=== PATIENT | female | born 1955 | race Caucasian/White ===

== ENCOUNTER 2025-05-14 08:54 | Outpatient (AMB) | payer MEDICARE, OTHER, SELFPAY ==
--- NOTE | 2025-05-14 08:55 | A.OFFPC_ITS ---
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 Is last menstrual period known: No Post menopausal: Yes Patient : No Allergies diphenhydramine (From Benadryl) Allergy (Mild, Verified 05/14/25 09:01) Hives acetaminophen Allergy (Verified 05/14/25 16:17) Rash acetazolamide Allergy (Verified 05/14/25 16:17) Unknown phenytoin Allergy (Verified 05/14/25 16:17) Rash Medication List - Last Reconciled 05/14/25 by Minnie Partida CNP anastrozole 1 mg PO DAILY ascorbate calcium (vitamin C) 500 mg PO DAILY calcium amino acid chelate mg PO DAILY cholecalciferol (vitamin D3) 25 mcg PO DAILY Tobacco use date assessed: 05/14/25 Dental Screening Dental Screen Date: 05/14/25 Did you have a dental visit in the last 12 months?: Yes Did you have a dental problem in the last 6 months where you did not have access to dental care?: No Was dental information given to patient?: Patient has dentist HPI HPI Comments History of Present Illness Details 69-year-old female presents to establish care. Prior PCP? - Dr. Mcclelland, [facility] Last office visit/CPE/labs - About 3 years Acute issue(s) - None Past Medical History - HLD, Osteopenia, left breast cancer, m yopia (wears glasses) Surgical History - Removal of malignant tumor of left tarsha ast, multiple surgeries of left ear, right rotator cuff surgery, carpal tunnel release of right hand, cholecystectomy Family History - Mom: Diabetes Social History - Nonsmoker. Does not vape. Does not dri nk alcohol. Denies recreational drug use - Has been making healthy dietary choice s. Exercises routinely. Generally sleep well Health maintenance - Last eye exam was 3 months ago with Tamiko Alfaro for [place]. Encouraged to signed a release for her PCP to obtain ophthalmology record - Last dental visit was 2 weeks ago - Last tetanus vaccine within the past 1 0 years at [facility]. Record not available on [facility] EHR for review - She notes that she is up-to-date on th e flu vaccine - She notes that she is up-to-date on sh ingles and pneumonia vaccines - Last pap smear test 3-4 years years ag o. Referred to [facility] senior project manager for a Pap smear test - Last mammogram was in 12/05/2024 with [facility] (requested and reviewed by this provider): No mammographic evidence of malignancy and no significant interval change. - Last colonoscopy was in 2022 at [facility]: Internal hemorrhoids. Record not available on [facility] EHR for review; fax sent to request colonoscopy record - Last dexa scan was in 03/14/2024 at [facility] (requests and reviewed by this provider): [facility] On[facility]ologist at the [facility] Medical History (Updated 05/14/25 @ 16:12 by Noreen Birch MA) Hyperlipemia Anal pruritus H/O mammogram Carpal tunnel syndrome Diverticulitis Breast cancer Surgical History (Updated 05/14/25 @ 16:11 by Noreen Birch MA) History of cholecystectomy H/O colonoscopy History of lumpectomy of left breast Family History (Updated 05/14/25 @ 09:13 by Noreen Birch MA) Mother Diabetes Social History (Updated 05/14/25 @ 09:11 by Noreen Birch MA) Housing: Apartment Alcohol intake: never Patient Tobacco Use Status: Never used Tobacco e-Cigarette/Vaping Use: Never Used Second Hand Smoke Exposure: No service: No Current occupational status: retired Current occupational exposures/hazards: No Cognitive needs: No Hearing needs: No Vision needs: No Questionnaire PHQ-9 Over the last 2 weeks, how often have you been bothered by any of the following problems? 1. Little interest or pleasure in doing things: not at all 2. Feeling down, depressed, or hopeless: not at all 3. Trouble falling or staying asleep, or sleeping too much: not at all 4. Feeling tired or having little energy: not at all 5. Poor appetite or overeating: not at all 6. Feeling bad about yourself - or that you are a failure or have let yourself or your family down: not at all 7. Trouble concentrating on things, such as reading the newspaper or watching television: not at all 8. Moving or speaking so slowly that other people could have noticed. Or the opposite - being so fidgety or restless that you have been moving around a lot more than usual: not at all 9. Thoughts that you would be better off or of hurting yourself in some way: not at all Total score: 0 Depression Screening Interpretation: Negative Depression Screening Done: Yes 48765 - PHQ-9 Billing: Yes Source: Developed by Drs. Donn Koenig, Shana Brunner, Rosas Pompa and colleagues, with an educational rajeev from [employer]. Thrive Questionnaire Date Thrive assessed: 05/14/25 I am a: Patient What is your living situation today?: I have a steady place to live Within the past 12 months, did the food you bought not last and you didn't have the money to get more?: I choose not to answer this question Within the past 12 months, did you worry whether your food would run out before you got money to buy more?: Often true Do you have trouble paying for medicines?: No Do you have trouble getting transportation to medical appointments?: No Do you have trouble paying your heating and electricity bill?: No Do you have trouble taking care of your child, family member or friend?: No Do you have trouble with day-to-day activities such as bathing, preparing meals, shopping, managing finances, etc.?: No Are you currently unemployed and looking for a job?: No Are you interested in more education?: No Please select the resources that you would like help with: None Currently or been in a relationship where the following occur: No concerns reported THRIVE Score: 1 AUDIT C Alcohol Use Questionnaire (AUDIT-C) 1. How often do you have a drink containing alcohol?: Never 3. How often do you have six or more drinks on one occasion?: Never Total Score: 0 Score Reviewed/Action Taken: Yes ETHAN-7 AMB Questionnaire ETHAN-7 Date ETHAN - 7 assessed: 05/14/25 Feeling nervous, anxious, or on edge: 0 = Not at all Not being able to stop or control worryin = Not at all Worrying too much about different things: 1 = Several days Trouble relaxin = Several days Being so restless that it is hard to sit still: 0 = Not at all Becoming easily annoyed or irritable: 1 = Several days Feeling afraid as if something awful might happen: 0 = Not at all Total ETHAN-7 score (0-4 normal; 5-9 mild; 10-14 moderate; 15-21 severe): 3 Source: Developed by Drs. Donn Koenig, Shana Brunner, Rosas Pompa and colleagues, with an educational rajeev from [employer]. Review of Systems Const Details: Denies chills, Denies fatigue, Denies fever(s), Denies headache(s) and Denies weakness HEENT Denies change in vision, Denies dizziness, Denies headache(s), Denies hearing loss, Denies nasal congestion, Denies sinus pain, Denies sinus pressure and Denies sore throat Card Denies chest pain, Denies lightheadedness, Denies dyspnea and Denies other (palpitations) Resp Denies cough, Denies dyspnea and Denies wheezing GI Denies abdominal pain, Denies melena, Denies hematochezia, Denies change in bowel habits, Denies dyspepsia and Denies nausea Denies hematuria and Denies dysuria Musc Denies abnormal gait, Denies myalgias, Denies arthralgias, Denies numbness and Denies tingling Skin/Breast Denies rash, Denies unusual bruising and Denies wounds Neuro Denies abnormal gait, Denies dizziness, Denies headache(s), Denies memory loss, Denies numbness, Denies Sensory deficit (Neuro), Denies tingling and Denies weakness Psych Denies anxiety, Denies depression and Denies memory loss Endo Denies cold intolerance, Denies fatigue, Denies heat intolerance, Denies polydipsia and Denies polyuria John/Lymph Denies easy bleeding and Denies easy bruising Aller/Immun Denies wheezing Physical exam (Primary Care) Vital Signs: Last Vital Signs Temp 98.4 F 05/14/25 09:05 Pulse 77 05/14/25 09:05 Resp 15 05/14/25 09:05 BP 120/60 05/14/25 09:05 Pulse Ox 97 05/14/25 09:05 Oxygen Delivery Method Room Air 05/14/25 09:05 BMI result Body Mass Index 22.1 Tobacco/Smoking Status: Tobacco use Status Tobacco use date assessed 05/14/25 05/14/25 09:08 Patient Tobacco Use Status Never used Tobacco 05/14/25 09:11 e-Cigarette/Vaping Use Never Used 05/14/25 09:11 PHQ-9: PHQ-9 Score PHQ-9: Total score 0 05/14/25 16:25 Depression Screening Interpretation: Negative Thrive Assessment: Date of Thrive Assessment Date Thrive assessed 05/14/25 05/14/25 08:58 Currently or been in a relationship where the following occur: No concerns reported Const Other: General: no acute distress, well developed, alert and awake Nutritional Appearance: well nourished Orientation/consciousness: patient oriented x3 HENMT Head: Yes normocephalic and Yes atraumatic Ears: hearing grossly normal bilaterally and TM's normal bilaterally General nose exam: Normal external nose present and Normal nares present Mouth: Normal oral and palatal mucosa present and moist mucous membranes Teeth and gingiva: dentition normal Throat: Yes oropharynx normal Eyes Pupils: Equal, round and reactive pupils present and Pupil accommodation reflex normal EOM: EOMs intact bilaterally Neck Neck: Yes normal visual inspection, Yes no lymphadenopathy and Yes trachea midline Thyroid: Thyroid normal Carotids: no bruits Lymphatic: no lymphadenopathy noted Chest Chest palpation & inspection: normal inspection of the chest Resp Effort & Inspection: normal respiratory effort Auscultation: clear to auscultation bilaterally Cardio Rate: regular rate Rhythm: regular rhythm Heart sounds: S1 normal heart sound present, S2 normal heart sound present, no gallops, no murmurs and no rubs Bruits: no abdominal aortic bruits and no carotid bruits GI Palpation (GI): No Abdominal aortic bruit present, Soft to palpation, nontender, No hepatosplenomegaly present and No Rebound tenderness present Auscultation: normal bowel sounds General: Yes no CVA tenderness Back/Spine/Pelvis Back: no CVA tenderness Cervical Spine: cervical ROM normal and No Cervical spine tenderness Thoracic/Lumbar Spine: thoraco-lumbar ROM normal, No pain with thoraco-lumbar ROM, No thoracic spinal tenderness and No lumbar spinal tenderness Skin General: warm and dry. Normal skin color. Normal skin turgor Lesions: no lesions Rashes: no rashes Trauma: no lacerations or abrasions Wounds: no wounds Nails: normal Neuro General: patient oriented x3, gait normal and CN's II-XI intact bilaterally Cranial nerves: Yes Equal, round and reactive pupils present Cognition (Neuro): normal cognition Gait exam (Neuro): Normal gait present Motor exam (neuro): 5/5 motor strength present throughout Sensory Exam: No Sensory deficit (Neuro) Deep tendon reflexes (DTR's): Right patellar reflex intensity grade: 2+ and Left patellar reflex intensity grade: 2+ Extrem General: Yes normal to inspection, No edema and No calf tenderness Psych Appearance: grossly normal Affect: normal affect Attitude: cooperative Thought process: Normal thought process present Coding Level of Care Code New Pt Prev Care >65yr (64816) Diagnoses Normal physical examination, routine Z00.00 History of cancer of left breast Z85.3 Pap smear for cervical cancer screening Z12.4 Osteopenia M85.80 Laboratory tests ordered as part of a complete physical exam (CPE) Z00.00 Additional Codes PHQ-9 - 18853 - PHQ-9 Billing: Yes ([id number]) Assessment & Plan Assessment & Plan (1) Normal physical examination, routine: Code(s): Z00.00 - Encounter for general adult medical examination without abnormal findings Category: Medical Plan: No significant functional limitations noted. Continue current treatment regimen. Healthy diet and routine exercise encouraged. Follow-up for telehealth visit in 2-4 weeks for labs review. Return sooner with symptoms or concerns. Verbalized understanding and agreed with the plan. (2) History of cancer of left breast: Code(s): Z85.3 - Personal history of malignant neoplasm of breast Category: Medical Plan: Cancer was surgically removed from left breast. No acute symptoms. Will request and review recent mammogram. She is on anastrozole 1 mg daily. Followed by Oncology at the [facility]. (3) Pap smear for cervical cancer screening: Code(s): Z12.4 - Encounter for screening for malignant neoplasm of cervix Category: Medical Plan: Last pap smear test 3-4 years years ago. Referred to [facility] senior project manager for a Pap smear test. (4) Osteopenia: Code(s): M85.80 - Other specified disorders of bone density and structure, unspecified site Category: Medical Plan: She is on vitamin D3 and calcium daily. Will repeat DEXA scan in 03/14/2026. Verbalized understanding and agreed with the plan. (5) Laboratory tests ordered as part of a complete physical exam (CPE): Code(s): Z. - Encounter for general adult medical examination without abnormal findings Category: Medical Plan: Fasting labs ordered as part of a complete physical exam. Advised to fast for at least 10 hours before getting labs drawn. May drink water Verbalized understanding and agreed with treatment plan. Orders: Orders Complete Blood Count Auto Diff 05/14/25 Z00.00 - Encounter for general adult medical examination without abnormal findings Comprehensive [place]. Panel Fast 05/14/25 Z00.00 - Encounter for general adult medical examination without abnormal findings Lipid Panel 05/14/25 Z00.00 - Encounter for general adult medical examination without abnormal findings Microalbumin, Random (w Creat) 05/14/25 Z00.00 - Encounter for general adult medical examination without abnormal findings TSH reflex Free T4 05/14/25 Z00.00 - Encounter for general adult medical examination without abnormal findings UA CC w/rflx Micro + Cult 05/14/25 Z00.00 - Encounter for general adult medical examination without abnormal findings Vitamin D 25-OH Total 05/14/25 Z00.00 - Encounter for general adult medical examination without abnormal findings 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
[2025-05-14 09:05] VITALS: BP 120/60; PULSE 77; RESP 15; TEMP 36.9; O2SAT 97; BMI 22.1
== END 2025-05-14 09:32 | disposition home or self-care (01) ==
LOC: HO.HMCFM 08:54
PROVIDERS: PCP Nurse Practitioner Family; Visit Provider Nurse Practitioner Family
DX: Z00.00 Encounter for general adult medical examination without abnormal findings (principal); Z85.3 Personal history of malignant neoplasm of breast; Z12.4 Encounter for screening for malignant neoplasm of cervix; M85.80 Other specified disorders of bone density and structure, unspecified site

== ENCOUNTER → 2025-05-14 08:54 | Outpatient (BNVA) | payer MEDICARE, OTHER, SELFPAY | PROVIDERS: PCP Nurse Practitioner Family; Visit Provider Nurse Practitioner Family | DX: Z00.00 Encounter for general adult medical examination without abnormal findings (principal); E78.5 Hyperlipidemia, unspecified; M85.80 Other specified disorders of bone density and structure, unspecified site; Z85.3 Personal history of malignant neoplasm of breast | CPT/HCPCS: 96127; 99387 ==

== ENCOUNTER 2025-05-15 08:26 | Outpatient (REF) | payer MEDICARE, OTHER, SELFPAY ==
[2025-05-15 11:14] LABS: MANUAL DIFF FLAG NO
[2025-05-15 11:30] LABS: Hematocrit 40.3 % (37.0-47.0); Hemoglobin 13.3 g/dl (12.0-16.0); Imm Gran Abs Auto 0.02 X10*3/uL (0.00-0.03); Imm Gran Pct Auto 0.4 % (0.0-0.4); Lymphocytes Absolute Auto 1.2 X10*3/uL (1.2-4.9); Mean Corpuscular HGB Conc 33.0 g/dl (31.0-35.0); Mean Corpuscular Hemoglobin 31.0 pg (27.0-33.0); Mean Corpuscular Volume 93.9 fL (80.0-98.0); NRBC Abs Auto 0.000 X10*3/uL (0.0-0.012); NRBC Pct Auto 0.0 /100WBC (0.0-0.2); Platelet Count 224 X10*3/uL (160-400); Red Blood Count 4.29 X10*6/uL (4.20-5.50); White Blood Count 5.7 X10*3/uL (4.8-10.8)
[2025-05-15 11:57] LABS: Appearance Urine Clear; Glucose Urine UA Negative (Negative); PH 5.5 (5.0-9.0); Specific Gravity - Urine 1.020 (1.005-1.025); UMIC TRIGGER UACC YES
[2025-05-15 11:59] LABS: Alanine Aminotransferase 14 U/L (0-31); Albumin Level 4.5 g/dL (3.5-5.0); Alkaline Phosphatase 56 U/L (39-117); Anion Gap 12 (12-20); Aspartate Amino Transferase 24 U/L (5-31); Blood Urea Nitrogen 13 mg/dL (9-16); Calcium 9.2 mg/dL (8.4-10.2); Carbon Dioxide 28 mmol/L (22-29); Chloride 106 mmol/L (96-108); Cholesterol 214 mg/dL (<200); Estimated Glomerular Filt Rate > 60; HDL Cholesterol 55 mg/dL (>40); Potassium 4.1 mmol/L (3.3-5.1); Sodium 142 mmol/L (135-145); Total Protein 7.0 g/dL (6.5-8.0); Triglycerides 104 mg/dL (<150)
[2025-05-15 12:46] LABS: Microalbum/Creatinine Ratio Ur 5.6 ug/mg cr (<30)
== END 2025-05-15 08:27 | disposition home or self-care (01) ==
LOC: HO.WFDLDS 08:26
PROVIDERS: Visit Provider Nurse Practitioner Family
DX: Z00.00 Encounter for general adult medical examination without abnormal findings (principal); Z13.220 Encounter for screening for lipoid disorders
CPT/HCPCS: 36415; 80053; 80061; 81001; 82043; 82306; 82570; 84443; 85025

== ENCOUNTER 2025-06-01 13:30 | Outpatient (AMB) | payer MEDICARE, OTHER, SELFPAY ==
--- OUTSIDE RECORDS SUMMARY | 2025-05-26 23:59 | XMS_ITS | Continuity of Care Document ---
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 Active acetaZOLAMIDE unknown Active diphenhydrAMINE Unknown Acti ve acetaminophen-propoxyphene ?rash Active Dilantin rash Active Immunizations Given and Recorded Vaccine Date Status Refusal Reason influenza virus vaccine, inactivated 06/03/23 Live rded influenza virus vaccine, inactivated 06/29/22 Live rded influenza virus vaccine, inactivated 06/14/21 Live rded influenza virus vaccine, inactivated 06/26/19 Live rded influenza virus vaccine, inactivated 07/06/17 Live rded influenza virus vaccine, inactivated 06/03/16 Live rded influenza virus vaccine, inactivated 07/10/13 Live rded [id number] bivalent booster vax 06/29/22 Recorded pneumococcal 20-valent conjugate vaccine 05/13/22 Recorded SARS-CoV-2 mRNA ([id number]) vax 04/20/22 Recorded SARS-CoV-2 (COVID-19) mRNA BNT-162b2 vac 08/28/21 Recorded SARS-CoV-2 (COVID-19) mRNA BNT-162b2 vac 02/13/21 Given SARS-CoV-2 (COVID-19) mRNA BNT-162b2 vac 01/23/21 Given Influenza Virus Vaccine (oldterm) 07/03/20 Recorde d tetanus/diphtheria/pertussis, acel(Tdap) 07/22/18 Recorded tetanus/diphtheria/pertussis, acel(Tdap) 03/02/13 Recorded zoster vaccine, inactivated 05/30/18 Recorded zoster vaccine, inactivated 02/10/18 Recorded tetanus-diphtheria toxoids (Td) 09/10/06 Recorded Medications anastrozole 1 mg oral tablet 1 tablet, By Mouth, Daily, # 60 tablet, 5 Refills, Maintenance, 08/30/24 10:44:00 AM ESTLinda #[id number], 157, cm, 08/01/24 9:33:00 EDT, Height, 57, kg, 07/06/24 15:28:00 EDT, Dry Weight Start Date: 08/30/24 Status: Ordered Quantity: 60.0 Unit: tablet Repeat number: 1 Calcium 600 +D oral tablet 1 tablet, By Mouth, 2 times a day, # 180 tablet, 0 Refills, Maintenance, 07/22/22 11:40:00 AM EDT, Tablet, [facility], Partial fill upon patient request if the prescription is for a schedule II opioid drug., 1 tablet By Mouth 2 times a day, 156, cm, 07/22/22 10:19:00 EDT, Height, 62, kg, 07/22/22 10:19:00 EDT, Dry Weight Start Date: 07/22/22 Status: Ordered Quantity: 180.0 Unit: tablet Repeat number: 1 Calcium Carbonate By Mouth, 0 Refills, Maintenance, 08/03/23 10:41:00 AM EDT, Partial fill upon patient request if the prescription is for a schedule II opioid drug. Start Date: 08/03/23 Status: Ordered Repeat number: 1 Cane See Instructions, # 1 each, Maintenance, Use as needed for ambulation, 07/28/23 10:24:00 PM EDT, Supply, 154, cm, 07/28/23 19:50:00 EDT, Height, 57, kg, 07/28/23 19:50:00 EDT, Dry Weight Start Date: 07/28/23 Status: Ordered Quantity: 1.0 Unit: each Repeat number: 1 Cane See Instructions, # 1 each, Maintenance, Use as needed for ambulation, 07/28/23 10:25:00 PM EDT, Supply Start Date: 07/28/23 Status: Ordered Quantity: 1.0 Unit: each Repeat number: 1 gabapentin 100 mg oral capsule 100 mg, 1, capsule, By Mouth, 2 times a day, # 180 capsule, Refills 1, Tot. Refills 1, Maintenance,12/31/23 1:17:00 PM EDT, Route to Pharmacy Electronically, [id number], Partial fill upon patient request if the prescription is for a schedule II opioid drug., 154, cm, 11/16/23 9:20:00 EST, Height, 59, kg, 11/16/23 9:20:00 EST, Dry Weight Start Date: 12/31/23 Stop Date: 06/28/24 Status: Ordered Quantity: 180.0 Unit: capsule Repeat number: 2 Lidocaine 0.5 Mg Intradermal Device 0 Refills, Maintenance, 05/14/24 8:06:00 AM EDT, Partial fill upon patient request if the prescription is for a schedule II opioid drug. Start Date: 05/14/24 Status: Ordered Repeat number: 1 Vitamin C = 500 mg, By Mouth, Daily, ? mg one daily, 0 Refills, Maintenance, 03/27/21 11:53:00 AM EDT, Partialfill upon patient request if the prescription is for a schedule II opioid drug. Start Date: 03/27/21 Status: Ordered Repeat number: 1 Vitamin D3 1000 intl units oral capsule 1 capsule = 1,000 International_Units, By Mouth, Daily, # 100 capsule, 0 Refills, Maintenance, 03/27/21 11:53:00 AM EDT, Capsule, Partial fill upon patient request if the prescription is for a schedule II opioid drug. 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 Breast cancer Confirmed Active Osteopenia Confirmed Active Pain and numbness of left upper extremity Confirmed Active Knee pain, right Confirmed Active Annual physical exam Confirmed Active Anal pruritus Confirmed Active Rectal bleed Confirmed Active Weight loss Confirmed Active Social History Social History Type Response Smoking Status Former smoker, quit more than 30 days ago; Other: quit when she was 18 yrs old; entered on: 03/27/21 Sex Sex Representation Female (finding) Patient Care team information Care Team Personnel Name: Aminah Mckenna RN Position: [facility] Onco RN Member Role: Primary Care Nurse Name: America Carey RN Position: S Onco RN Member Role: Primary Care Nurse Name: Margaret Lemon Position: [facility] Onco RN Member Role: Primary Care Nurse Name: Telma Suarez RN Position: [facility] Onco RN Member Role: Primary Care Nurse Name: Marilyn German RN Position: [facility] Onco RN Member Role: Primary Care Nurse Name: Angela Villagran RN Position: [facility] Onco RN Member Role: Primary Care Nurse Name: Minnie Partida NP Position: Reference Physician Member Role: PCP Address: [address] [place], [place] [address] Telecom: Care Team Related Persons Name: CHINO ROLDAN Name: CHINO DUBOSE Name: JENNY VIZCARRA Insurance Providers Guarantor name: LIAM VIZCARRA Health Plan Information #: 1 Payer: MEDICARE B Payer Identifier: Member Number: [id number] Group Number: Subscriber Identifier: [id number] Relationship to Subscriber: self Coverage Type: NA Coverage Verification Date: Telecom: Address: Health Plan Information #: 2 Payer: FOR LIFE Payer Identifier: Member Number: [id number] Group Number: Subscriber Identifier: [id number] Relationship to Subscriber: self Coverage Type: For Life--Medicare Supplement Coverage Verification Date: Telecom: Address:
--- NOTE | 2025-06-01 13:24 | A.OFFPC_ITS ---
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 Is last menstrual period known: No Post menopausal: No Patient : No Allergies diphenhydramine (From Benadryl) Allergy (Mild, Verified 06/01/25 13:25) Hives acetaminophen Allergy (Verified 06/01/25 13:25) Rash acetazolamide Allergy (Verified 06/01/25 13:25) Unknown phenytoin Allergy (Verified 06/01/25 13:25) Rash Tobacco use date assessed: 06/01/25 Fall risk assessment: No Falls in past year Last assessed Fall Risk: 06/01/25 Dental Screening Dental Screen Date: 06/01/25 Did you have a dental visit in the last 12 months?: Yes Did you have a dental problem in the last 6 months where you did not have access to dental care?: No Was dental information given to patient?: Patient has dentist HPI HPI Comments History of Present Illness Details 69-year-old female presents for [facility] for review of recent lab results. She notes that she general makes healthy dietary choices and exercise routinely. Her identical twin has hyperlipidemia and on cholesterol medication. She offers no complaints and denies acute symptoms at this time. [facility] Medical History (Updated 06/01/25 @ 13:50 by Minnie Partida CNP) Hyperlipemia Anal pruritus H/O mammogram Carpal tunnel syndrome Diverticulitis Breast cancer Surgical History (Updated 05/14/25 @ 16:11 by Noreen Birch MA) History of cholecystectomy H/O colonoscopy History of lumpectomy of left breast Family History (Updated 05/14/25 @ 09:13 by Noreen Birch MA) Mother Diabetes Social History (Updated 05/14/25 @ 09:11 by Noreen Birch MA) Housing: Apartment Alcohol intake: never Patient Tobacco Use Status: Never used Tobacco e-Cigarette/Vaping Use: Never Used Second Hand Smoke Exposure: No Patient : No service: No Current occupational status: retired Current occupational exposures/hazards: No Cognitive needs: No Hearing needs: No Vision needs: No Questionnaire Thrive Questionnaire Date Thrive assessed: 05/14/25 ETHAN-7 AMB Questionnaire ETHAN-7 Date TEHAN - 7 assessed: 05/14/25 Source: Developed by Drs. Donn Koenig, Shana Brunner, Rosas Pompa and colleagues, with an educational rajeev from [employer]. Review of Systems Const Details: Denies chills, Denies fatigue, Denies fever(s), Denies headache(s) and Denies weakness Cardiac Denies chest pain, Denies claudication, Denies leg edema, Denies lightheadedness, Denies palpitations, Denies dyspnea, Denies dyspnea on exertion, Denies orthopnea and Denies other (Loss of consciousness) Resp Denies cough, Denies excessive phlegm production, Denies dyspnea, Denies dyspnea on exertion, Denies snoring and Denies wheezing Physical exam (Primary Care) Tobacco/Smoking Status: Tobacco use Status Tobacco use date assessed 06/01/25 06/01/25 13:27 Patient Tobacco Use Status Never used Tobacco 06/01/25 13:27 e-Cigarette/Vaping Use Never Used 06/01/25 13:27 Thrive Assessment: Date of Thrive Assessment Date Thrive assessed 05/14/25 06/01/25 13:27 Const Other: Patient is alert and oriented x3 Telehealth Telehealth Telehealth Platform: Telephone Location of provider rendering services: practice address Location of patient: address on file Patient Identification confirmed using: Name, : Yes Telehealth method: voice only Patient verbally consented to treatment: Yes Patient verbally consented to billing insurance company: Yes Patient informed of any privacy concerns related to visit: Yes Coding Level of Care Code Tele Est Pt Level 3 (74056) Diagnoses Hyperlipemia E78.5 Elevated fasting glucose R73.01 Time Spent (min) 15 Assessment & Plan Assessment & Plan (1) Hyperlipemia: Code(s): E78.5 - Hyperlipidemia, unspecified Category: Medical Plan: Recent total cholesterol and LDL levels are elevated, 214 and 139 respectively. Triglycerides and HDL levels are normal. She generally makes healthy lifestyle choices. Her identical twin has hyperlipidemia and on cholesterol medication. She will continue to make healthy lifestyle changes for now versus antilipemic. Advised to limit foods high in saturated fat and avoid foods high in trans fat. Routine exercise encouraged. Fast for 10-12 hours, may drink water, performed lipid panel blood work 2-3 days before next visit. Follow-up for telehealth visit in 2 months. Return sooner with symptoms or concerns. Verbalized understanding and agreed with the plan. (2) Elevated fasting glucose: Code(s): R73.01 - Impaired fasting glucose Category: Medical Plan: Recent fasting glucose is slightly elevated, 101. Healthy diet and routine exercise encouraged. Will recheck fasting glucose and make changes as needed. Verbalized understanding and agreed with the plan. Orders: Orders Lipid Panel 2 Months E78.5 - Hyperlipidemia, unspecified Glucose Fasting 2 Months R73.01 - Impaired fasting glucose
== END 2025-06-01 14:03 | disposition home or self-care (01) ==
LOC: HO.HMCFM 13:30
PROVIDERS: PCP Nurse Practitioner Family; Visit Provider Nurse Practitioner Family
DX: E78.5 Hyperlipidemia, unspecified (principal); R73.01 Impaired fasting glucose

== ENCOUNTER 2025-08-01 10:24 | Outpatient (REF) | payer MEDICARE, OTHER, SELFPAY ==
[2025-08-01 14:13] LABS: Appearance Urine Clear; Glucose Urine UA Negative (Negative); PH 7.5 (5.0-9.0); Specific Gravity - Urine 1.020 (1.005-1.025)
[2025-08-01 14:35] LABS: Cholesterol 191 mg/dL (<200); HDL Cholesterol 52 mg/dL (>40); Triglycerides 112 mg/dL (<150)
== END 2025-08-01 10:25 | disposition home or self-care (01) ==
LOC: HO.WFDLDS 10:24
PROVIDERS: Visit Provider Nurse Practitioner Family
DX: Z00.00 Encounter for general adult medical examination without abnormal findings (principal); E78.5 Hyperlipidemia, unspecified; R73.01 Impaired fasting glucose
CPT/HCPCS: 36415; 80061; 81003; 82947

== ENCOUNTER 2025-08-07 15:01 | Outpatient (AMB) | payer MEDICARE, OTHER, SELFPAY ==
--- NOTE | 2025-08-07 15:07 | MHC.PC.OV ---
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 Is last menstrual period known: No Post menopausal: No Patient : No Allergies diphenhydramine (From Benadryl) Allergy (Mild, Verified 08/07/25 15:23) Hives acetaminophen Allergy (Verified 08/07/25 15:23) Rash acetazolamide Allergy (Verified 08/07/25 15:23) Unknown phenytoin Allergy (Verified 08/07/25 15:23) Rash Tobacco use date assessed: 08/07/25 Fall risk assessment: No Falls in past year Last assessed Fall Risk: 08/07/25 Dental Screening Dental Screen Date: 08/07/25 Did you have a dental visit in the last 12 months?: Yes Did you have a dental problem in the last 6 months where you did not have access to dental care?: No Was dental information given to patient?: Patient has dentist HPI HPI Comments History of Present Illness Details 69-year-old female presents for hyperlipidemia and elevated fasting glucose follow-up. She admits to taking her medications as prescribed without adverse reactions. She notes that she has been making healthy lifestyle choices. She offers no complaints and denies acute symptoms at this time. [facility] Medical History (Updated 06/01/25 @ 13:50 by Minnie Partida CNP) Hyperlipemia Anal pruritus H/O mammogram Carpal tunnel syndrome Diverticulitis Breast cancer Surgical History (Updated 05/14/25 @ 16:11 by Noreen Birch MA) History of cholecystectomy H/O colonoscopy History of lumpectomy of left breast Family History (Updated 05/14/25 @ 09:13 by Noreen Birch MA) Mother Diabetes Social History (Updated 05/14/25 @ 09:11 by Noreen Birch MA) Housing: Apartment Alcohol intake: never Patient Tobacco Use Status: Never used Tobacco e-Cigarette/Vaping Use: Never Used Second Hand Smoke Exposure: No service: No Current occupational status: retired Current occupational exposures/hazards: No Cognitive needs: No Hearing needs: No Vision needs: No Questionnaire PHQ-9 Over the last 2 weeks, how often have you been bothered by any of the following problems? 3. Trouble falling or staying asleep, or sleeping too much: nearly every day Source: Developed by Drs. Donn Koenig, Shana Brunner, Rosas Pompa and colleagues, with an educational rajeev from [employer]. Thrive Questionnaire Date Thrive assessed: 05/14/25 I am a: Patient What is your living situation today?: I have a steady place to live Within the past 12 months, did the food you bought not last and you didn't have the money to get more?: I choose not to answer this question Within the past 12 months, did you worry whether your food would run out before you got money to buy more?: Often true Do you have trouble paying for medicines?: No Do you have trouble getting transportation to medical appointments?: No Do you have trouble paying your heating and electricity bill?: No Do you have trouble taking care of your child, family member or friend?: No Do you have trouble with day-to-day activities such as bathing, preparing meals, shopping, managing finances, etc.?: No Are you currently unemployed and looking for a job?: No Are you interested in more education?: No Please select the resources that you would like help with: None Currently or been in a relationship where the following occur: No concerns reported THRIVE Score: 1 ETHAN-7 AMB Questionnaire ETHAN-7 Date ETHAN - 7 assessed: 05/14/25 Source: Developed by Drs. Donn Koenig, Shana Brunner, Rosas Pompa and colleagues, with an educational rajeev from [employer]. Review of Systems Const Details: Const Denies chills, Denies fatigue, Denies fever(s), Denies headache(s) and Denies weakness ENT Denies dizziness and Denies headache(s) Card Denies chest pain, Denies lightheadedness, Denies dyspnea and Denies other (Palpitations) Resp Denies cough, Denies dyspnea, Denies wheezing and Denies other ( shortness of breath) GI Denies abdominal pain, Denies melena, Denies hematochezia, Denies change in bowel habits, Denies dyspepsia and Denies nausea Denies hematuria and Denies dysuria Musc Denies abnormal gait, Denies myalgias, Denies arthralgias, Denies numbness and Denies tingling Skin/Breast Denies rash, Denies unusual bruising and Denies wounds Neuro Denies abnormal gait, Denies dizziness, Denies headache(s), Denies memory loss, Denies numbness, Denies Sensory deficit (Neuro), Denies tingling and Denies weakness Psych Denies anxiety, Denies depression, Denies memory loss Endo Denies cold intolerance, Denies fatigue, Denies heat intolerance, Denies polydipsia and Denies polyuria Aller/Immun Denies wheezing Physical exam (Primary Care) Tobacco/Smoking Status: Tobacco use Status Tobacco use date assessed 05/14/25 08/07/25 15:09 Patient Tobacco Use Status Never used Tobacco 08/07/25 15:09 e-Cigarette/Vaping Use Never Used 08/07/25 15:09 Thrive Assessment: Date of Thrive Assessment Date Thrive assessed 05/14/25 08/07/25 15:09 Currently or been in a relationship where the following occur: No concerns reported Const Other: General: no acute distress and well developed Nutritional Appearance: well nourished Orientation/consciousness: patient oriented x3 HENMT Head: Yes normocephalic and Yes atraumatic Eyes General: appearance normal, both eyes and all related structures Pupils: Equal, round and reactive pupils present EOM: EOMs intact bilaterally Resp Effort & Inspection: normal respiratory effort Auscultation: clear to auscultation bilaterally Cardio Rate: regular rate Rhythm: regular rhythm Heart sounds: S1 normal heart sound present, S2 normal heart sound present, no gallops, no murmurs and no rubs GI Palpation (GI): No Abdominal aortic bruit present, Soft to palpation, nontender, No hepatosplenomegaly present and No Rebound tenderness present Auscultation: normal bowel sounds General: Yes no CVA tenderness Back/Spine/Pelvis Back: no CVA tenderness Cervical Spine: cervical ROM normal and No Cervical spine tenderness Thoracic/Lumbar Spine: thoraco-lumbar ROM normal, No pain with thoraco-lumbar ROM, No thoracic spinal tenderness and No lumbar spinal tenderness Extrem General: Yes normal to inspection, No edema and No calf tenderness Skin General: warm and dry. Normal skin color. Normal skin turgor Neuro General: patient oriented x3, gait normal and no focal neuro deficit Cranial nerves: Yes Equal, round and reactive pupils present Cognition (Neuro): normal cognition Gait exam (Neuro): Normal gait present Sensory Exam: No Sensory deficit (Neuro) Psych Appearance: grossly normal Affect: normal affect Attitude: cooperative Thought process: Normal thought process present Coding Level of Care Code Est Pt Level 3 (02086) Diagnoses Hyperlipemia E78.5 Elevated fasting glucose R73.01 Assessment & Plan Assessment & Plan (1) Hyperlipemia: Code(s): E78.5 - Hyperlipidemia, unspecified Category: Medical Plan: Recent LDL level is slightly elevated, 117, previous level was 139, triglycerides, total cholesterol, and HDL levels are normal. Advised to limit foods high in saturated fat and avoid foods high in trans fat. Routine exercise encouraged. Fast for 10-12 hours, may drink water, and perform lipid panel blood work a few days before next visit. Follow-up for JONATHAN/HDL in 3 months. Return sooner with symptoms or concerns. Verbalized understanding and agreed with the plan. (2) Elevated fasting glucose: Code(s): R73.01 - Impaired fasting glucose Category: Medical Plan: Recent fasting glucose is normal. Healthy diet and routine exercise encouraged. Verbalized understanding and agreed with the plan. Orders: Orders Lipid Panel 3 Months E78.5 - Hyperlipidemia, unspecified
[2025-08-07 15:24] VITALS: BP 130/59; PULSE 84; RESP 16; TEMP 36.6; O2SAT 98; BMI 22.5
[2025-08-07 15:50] VITALS: BP 100/60
== END 2025-08-07 15:57 | disposition home or self-care (01) ==
LOC: HO.HMCFM 15:02
PROVIDERS: PCP Nurse Practitioner Family; Visit Provider Nurse Practitioner Family
DX: E78.5 Hyperlipidemia, unspecified (principal); R73.01 Impaired fasting glucose

== ENCOUNTER → 2025-08-07 15:01 | Outpatient (BNVA) | payer MEDICARE, OTHER, SELFPAY | PROVIDERS: PCP Nurse Practitioner Family; Visit Provider Nurse Practitioner Family | DX: R73.01 Impaired fasting glucose (principal); E78.5 Hyperlipidemia, unspecified | CPT/HCPCS: 99212 ==